=== PATIENT | male | born 1960 | race Two or more races ===

== ENCOUNTER 2017-04-20 12:45 | Day surgery (SDC) | payer OTHER ==
[~2017-04-20] VITALS: Ht 172.7 cm; Wt 78.5 kg
[2017-04-20 13:24] VITALS: Ht 172.7 cm; Wt 78.5 kg
[2017-04-20] MEDS ORDERED: ZOLP10TA5 PO (13:33)
[2017-04-20] MEDS ORDERED: TRAM50TA2 PO (13:33)
[2017-04-20] MEDS ORDERED: GABA300C16 PO (13:33)
[2017-04-20 13:53] VITALS: BP 117/68; PULSE 60; RESP 16
--- NOTE | 2017-04-20 14:31 | OPPN ---
Date/Time of Note Date/Time of Note DATE: 04/20/17 TIME: 14:30 Endoscopy normal repeat colonoscopy 10 years Operative Report Preoperative Diagnosis Screening colonoscopy Postoperative Diagnosis Normal: Colonoscopy Operation/Procedure Performed Colonoscopy Surgeon see signature line educational/development assistant None Anesthesia: moderate sedation (Versed 4 mg fentanyl 75 mcg total. For moderate sedation 21 minutes) Estimated blood loss: none Transfusion Required none Specimen None Grafts/Implants none Complications none MILE SINGH MD Apr 20, 2017 14:31
[2017-04-20] MEDS ORDERED: FENTAnyl 50 MCG/ML VIAL ONE (14:36)
[2017-04-20] MEDS ORDERED: MIDAZOLAM 1 MG/ML 2 ML INJ ONE ×2 (14:36)
[2017-04-20 15:05] VITALS: BP 98/51; PULSE 58; RESP 20
--- NOTE | 2017-04-21 14:11 | GILP ---
DATE OF PROCEDURE: PREOPERATIVE DIAGNOSIS: Screening colonoscopy. PROCEDURE DONE: Colonoscopy up to cecum. POSTOPERATIVE DIAGNOSIS: Normal colonoscopy. DESCRIPTION OF PROCEDURE: The patient was put in left lateral decubitus after obtaining informed co nsent. He was sedated with 4 mg of IV Versed and 75 mcg of fentanyl. Total moderate sedation time 20 minutes. I advanced the colonoscope all the way to cecum. Appendiceal opening identified. Cecum, ascending colon, transverse colon normal. Descending colon, sigmoid colon normal. The rectum including the a ntegrade and retrograde exam normal. Rectal exam normal. Postop, patient had no complication. PLAN: This study is normal, my recommendation is follow the patient every year with occult blood te sting and repeat colonoscopy in 10 years. Dictated By: MILE LOZANO Conf#: [id number] DID#: [id number] CC: Mohsen Baird; MILE SINGH M.D.;*EndCC*
== END 2017-04-20 15:36 | disposition home or self-care (01) ==
LOC: GIL 12:45
PROVIDERS: ATTEND Internal Medicine
DX: Z12.11 Encounter for screening for malignant neoplasm of colon (principal)
CPT/HCPCS: 45378; J2250; J3010; Z7610